=== PATIENT | female | born 1985 | race Caucasian/White ===

== ENCOUNTER 2019-10-05 19:20 | Emergency (ER) | payer MEDICAID, OTHER ==
[~2019-10-05] VITALS: Ht 157.5 cm; Wt 106.6 kg
[2019-10-05 19:35] VITALS: BP_SYST 138
[2019-10-05] MEDS ORDERED: BACITRACIN 1 GM OINT TP ONE (19:45)
[2019-10-05] MEDS ORDERED: LIDOCAINE 1% 10 MG/ML, 20 ML MDV INJ ONE (19:45)
[2019-10-05 20:57] VITALS: BP_SYST 138
== END 2019-10-05 20:57 | disposition home or self-care (01) ==
LOC: SED 19:20
DX: S61.215A Laceration without foreign body of left ring finger without damage to nail, initial encounter (principal); R03.0 Elevated blood-pressure reading, without diagnosis of hypertension; W26.0XXA Contact with knife, initial encounter; Y93.G3 Activity, cooking and baking; Y92.89 Other specified places as the place of occurrence of the external cause; Y99.8 Other external cause status
CPT/HCPCS: 12001; 99283; J2001

== ENCOUNTER 2020-03-14 08:56 | Emergency (ER) | payer MEDICAID ==
[~2020-03-14] VITALS: Ht 157.5 cm; Wt 111.1 kg
[2020-03-14 09:03] VITALS: BP_SYST 125
[2020-03-14] MEDS ORDERED: KETOROLAC TROMETHAMINE 60 MG/2 ML VIAL IM ONE (09:30)
[2020-03-14 09:32] LABS: BILIRUBIN,URINE NEGATIVE (NEGATIVE); BLOOD, URINE TRACE (NEGATIVE); CLARITY/URINE CLEAR (CLEAR); COLOR,URINE YELLOW (YELLOW); GLUCOSE,URINE NEGATIVE (NEGATIVE); KETONES,URINE NEGATIVE (NEGATIVE); LEUKOCYTE ESTERASE ,URINE NEGATIVE (NEGATIVE); NITRITE, URINE NEGATIVE (NEGATIVE); PH,URINE 5.5 (5.0-8.0); PROTEIN URINE NEGATIVE (NEGATIVE); UROBILINOGEN,URINE 0.2 (0.2-1.0)
[2020-03-14 09:35] LABS: BACTERIA,URINE FEW /HPF (None Seen); RBC,URINE 0-3 /HPF (0-3); WBC,URINE 0-3 /HPF (0-3)
[2020-03-14 09:36] LABS: BASOPHILS # (AUTO) 0.1 K/uL (0.0-0.2); BASOPHILS % (AUTO) 0.7 % (0.0-2.0); EOSINOPHILS # (AUTO) 0.2 K/uL (0.0-0.4); EOSINOPHILS % (AUTO) 2.4 % (0.0-4.0); HEMATOCRIT 38.6 % (36-48); HEMOGLOBIN 13.3 g/dL (12.0-16.0); LYMPHOCYTES # (AUTO) 2.8 K/uL (1.0-5.5); LYMPHOCYTES % (AUTO) 28.3 % (20.5-51.5); MEAN CORPUSCULAR HEMOGLOBIN 29 pg (27-31); MEAN CORPUSCULAR HGB CONC 35 % (32-36); MEAN CORPUSCULAR VOLUME 84 fL (79.0-98.0); MONOCYTES # (AUTO) 0.6 K/uL (0.0-1.0); MONOCYTES % (AUTO) 6.3 % (1.7-9.3); NEUTROPHILS # (AUTO) 6.2 K/uL (1.8-7.7); NEUTROPHILS % (AUTO) 62.3 % (40.0-70.0); PLATELET COUNT (AUTO) 332 K/uL (130-430); RED BLOOD CELL COUNT(AUTO) 4.57 MIL/uL (4.2-6.2); RED CELL DISTRIBUTION WIDTH 13.3 % (9.0-15.0)
[2020-03-14 09:43] LABS: CALCIUM 8.9 mg/dL (8.4-11.0); CREATININE 0.73 mg/dL (0.55-1.30)
[2020-03-14 09:49] LABS: ALBUMIN 3.7 g/dL (3.4-4.8); TOTAL BILIRUBIN 0.2 mg/dL (0.0-1.0)
[2020-03-14] MEDS ORDERED: MORPHINE 4 MG/ML INJ. SYRINGE IM ONE (10:30)
[2020-03-14 12:46] VITALS: BP_SYST 125
== END 2020-03-14 12:46 | disposition home or self-care (01) ==
LOC: SED 08:56
DX: N83.201 Unspecified ovarian cyst, right side (principal); K62.5 Hemorrhage of anus and rectum; R10.2 Pelvic and perineal pain
CPT/HCPCS: 36415; 74176; 76830; 76857; 80053; 81000; 81025; 83690; 85025; 96372; 99285; J1885; J2270

== ENCOUNTER 2023-02-27 05:16 | Inpatient (IN) | payer OTHER ==
[~2023-02-27] VITALS: Ht 157.5 cm; Wt 118.0 kg
[2023-02-27 05:45] VITALS: BP_SYST 118
[2023-02-27] MEDS ORDERED: CITRIC ACID/SODIUM CITRATE 30 ML UDC PO ONE (05:45)
[2023-02-27] MEDS ORDERED: CEFAZOLIN 2 GM IVPB PREMIX 50 ML IV ONE (05:45)
[2023-02-27 06:10] LABS: CLARITY/URINE SLIGHTLY CLOUDY (CLEAR); COLOR,URINE YELLOW (YELLOW); GLUCOSE,URINE NEGATIVE (NEGATIVE); PH,URINE 6.5 (5.0-8.0); PROTEIN URINE TRACE (NEGATIVE)
[2023-02-27 06:11] LABS: BILIRUBIN,URINE NEGATIVE (NEGATIVE); BLOOD, URINE TRACE (NEGATIVE); KETONES,URINE NEGATIVE (NEGATIVE); LEUKOCYTE ESTERASE ,URINE 2+ (NEGATIVE); NITRITE, URINE NEGATIVE (NEGATIVE); UROBILINOGEN,URINE 0.2 (0.2-1.0)
[2023-02-27 06:14] LABS: WBC,URINE 20-50 /HPF (0-3)
[2023-02-27 06:15] LABS: BACTERIA,URINE MODERATE /HPF (None Seen)
[2023-02-27 06:18] LABS: BASOPHILS % (AUTO) 0.3 % (0.0-2.0); EOSINOPHILS # (AUTO) 0.1 K/uL (0.0-0.4); EOSINOPHILS % (AUTO) 1.6 % (0.0-4.0); HEMATOCRIT 34.1 % (36-48); HEMOGLOBIN 11.5 g/dL (12.0-16.0); MEAN CORPUSCULAR HEMOGLOBIN 27 pg (27-31); MEAN CORPUSCULAR HGB CONC 34 % (32-36); MEAN CORPUSCULAR VOLUME 81 fL (79.0-98.0); MONOCYTES # (AUTO) 0.7 K/uL (0.0-1.0); MONOCYTES % (AUTO) 8.3 % (1.7-9.3); NEUTROPHILS # (AUTO) 6.1 K/uL (1.8-7.7); NEUTROPHILS % (AUTO) 67.8 % (40.0-70.0); PLATELET COUNT (AUTO) 202 K/uL (130-430); RED CELL DISTRIBUTION WIDTH 15.2 % (9.0-15.0); WHITE BLOOD COUNT (AUTO) 8.9 K/uL (4.8-10.8)
[2023-02-27] MEDS: LR 1,000 ML IV SCH ×2 (06:23→23:36)
[2023-02-27] MEDS ORDERED: ONDANSETRON HCL 4 MG/2 ML VIAL ONE (07:33)
[2023-02-27] MEDS ORDERED: BUPIVACAINE /PF 0.75% 10 ML VIAL INJ ONE (07:33)
[2023-02-27] MEDS ORDERED: OXYTOCIN 10 UNIT/ML VIAL ONE (07:33)
[2023-02-27] MEDS ORDERED: MORPHINE SULFATE 10MG/10ML PF AMP ONE (07:33)
[2023-02-27] MEDS ORDERED: WATER FOR IRRIGATION,STERILE 1,000 ML IRRIG.SOLN IR ONE (07:33)
[2023-02-27] MEDS ORDERED: LR 1,000 ML IV.SOLN IV ONE (07:33)
[2023-02-27] MEDS ORDERED: NS IRRIG SOLN 1000 ML IR ONE (07:33)
[2023-02-27] MEDS ORDERED: KETOROLAC TROMETHAMINE 30 MG VIAL ONE (07:33)
[2023-02-27] MEDS ORDERED: KETOROLAC TROMETHAMINE 60 MG/2 ML VIAL IM PRN (08:00)
[2023-02-27] MEDS ORDERED: DIPHENHYDRAMINE INJ 50 MG/ML VIAL IM PRN (08:00)
[2023-02-27] MEDS ORDERED: NALOXONE HCL 0.4 MG/ML AMP (NARCAN) IVP PRN (08:00)
[2023-02-27] MEDS ORDERED: MORPHINE SULFATE 10MG/10ML PF AMP SP SCH (08:00)
[2023-02-27 09:09] VITALS: BP_SYST 137
[2023-02-27] MEDS ORDERED: OXYTOCIN/0.9 % SODIUM CHLORIDE 1,000 ML IV ONE (10:40)
[2023-02-27] MEDS: ONDANSETRON HCL 4 MG/2 ML VIAL IVP PRN ×2 (12:17→18:06)
[2023-02-27] MEDS: IBUPROFEN 800 MG TABLET PO SCH (23:37)
[2023-02-28] MEDS: IBUPROFEN 800 MG TABLET PO SCH ×4 (06:15→23:49)
[2023-02-28 07:53] LABS: BASOPHILS % (AUTO) 0.1 % (0.0-2.0); EOSINOPHILS # (AUTO) 0.1 K/uL (0.0-0.4); EOSINOPHILS % (AUTO) 0.7 % (0.0-4.0); HEMOGLOBIN 10.2 g/dL (12.0-16.0); LYMPHOCYTES # (AUTO) 1.7 K/uL (1.0-5.5); LYMPHOCYTES % (AUTO) 14.9 % (20.5-51.5); MEAN CORPUSCULAR HEMOGLOBIN 27 pg (27-31); MEAN CORPUSCULAR HGB CONC 33 % (32-36); MEAN CORPUSCULAR VOLUME 83 fL (79.0-98.0); MONOCYTES # (AUTO) 0.9 K/uL (0.0-1.0); MONOCYTES % (AUTO) 8.2 % (1.7-9.3); NEUTROPHILS # (AUTO) 8.4 K/uL (1.8-7.7); NEUTROPHILS % (AUTO) 76.1 % (40.0-70.0); PLATELET COUNT (AUTO) 207 K/uL (130-430); RED BLOOD CELL COUNT(AUTO) 3.76 MIL/uL (4.2-6.2); RED CELL DISTRIBUTION WIDTH 15.4 % (9.0-15.0); WHITE BLOOD COUNT (AUTO) 11.1 K/uL (4.8-10.8)
[2023-02-28] MEDS: LR 1,000 ML IV SCH (11:36)
[2023-02-28] MEDS: HYDROcodone/ACETAMIN 5-325 MG TAB (NORCO/ VICODIN) PO PRN ×2 (13:47→20:12)
[2023-03-01] MEDS: OXYCODONE/ACETAMINOPHEN 5-325 TABLET PO PRN ×5 (02:15→21:24)
[2023-03-01] MEDS: IBUPROFEN 800 MG TABLET PO SCH ×3 (05:56→17:53)
[2023-03-01] MEDS ORDERED: DOCUSATE SODIUM 100 MG CAPSULE PO ONE (09:15)
[2023-03-01] MEDS ORDERED: SIMETHICONE 80 MG TAB.CHEW PO PRN (09:15)
[2023-03-01] MEDS ORDERED: SENNOSIDES 8.6 MG TABLET PO SCH (22:00)
[2023-03-01] MEDS ORDERED: SENNOSIDES 8.6 MG TABLET PO ONE (23:15)
[2023-03-02] MEDS: IBUPROFEN 800 MG TABLET PO SCH ×3 (00:58→12:02)
[2023-03-02] MEDS: OXYCODONE/ACETAMINOPHEN 5-325 TABLET PO PRN ×2 (00:59→08:52)
[2023-03-02] MEDS ORDERED: DOCUSATE SODIUM 100 MG CAPSULE PO SCH (09:00)
[2023-03-02] MEDS ORDERED: DIPHTH,PERTUSS(ACELL),TET VAC 0.5 ML VIAL (Tdap) I.M. PRN (10:00)
[2023-03-02] MEDS ORDERED: SENNOSIDES 8.6 MG TABLET PO SCH (21:00)
== END 2023-03-02 12:40 | disposition home or self-care (01) | DRG 539 ==
LOC: OBSVTOIN 05:16 → SPU 05:16
PROVIDERS: ADMIT Obstetrics & Gynecology; ATTEND Obstetrics & Gynecology
PROC: 0UB70ZZ Excision of Bilateral Fallopian Tubes, Open Approach (ICD-10-PCS; 2023-02-27)
PROC: 10D00Z1 Extraction of Products of Conception, Low, Open Approach (ICD-10-PCS; principal; 2023-02-27 07:33)
DX: O34.211 Maternal care for low transverse scar from previous cesarean delivery (principal); Z30.2 Encounter for sterilization; Z37.0 Single live birth; Z3A.39 39 weeks gestation of pregnancy
CPT/HCPCS: 36415; 81000; 85025; 86592; 86886; 86900; 86901; 87086; 88302; 88305; 90715; 94760; J0690; J1200; J1885; J2274; J2405; J2590; J3490; J7120